=== PATIENT | male | born 2000 | race Caucasian/White ===

== ENCOUNTER → 2020-11-07 | Outpatient (RCR) | payer BC | LOC: M PT 10-08 10:43 | PROVIDERS: ATTEND Physician Assistant | DX: M25.512 Pain in left shoulder (principal) ==

== ENCOUNTER 2020-11-21 10:30 | Outpatient (RCR) | payer BC | END 2020-12-07 | LOC: M PT 10:30 | PROVIDERS: ATTEND Physician Assistant | DX: S43.52XA Sprain of left acromioclavicular joint, initial encounter (principal); X58.XXXA Exposure to other specified factors, initial encounter; Y92.9 Unspecified place or not applicable ==